=== PATIENT | female | born 2000 | race Hispanic/Latino ===

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

== ENCOUNTER 2022-03-07 08:10 | Emergency (ER) | payer OTHER ==
[~2022-03-07] VITALS: Ht 149.9 cm; Wt 47.6 kg
[2022-03-07] MEDS ORDERED: LIDOCAINE HCL 1% LOCAL INJ 20 ML VIAL INJ ONE (08:30)
[2022-03-07] MEDS ORDERED: BACITRACIN ZINC 0.9GM TP ONE ×2 (09:43→09:45)
[2022-03-07] MEDS ORDERED: KEFLEX125 MG/5 M PO (11:42)
== END 2022-03-07 13:04 | disposition home or self-care (01) ==
LOC: ER 08:30
DX: S61.411A Laceration without foreign body of right hand, initial encounter (principal); W26.8XXA Contact with other sharp object(s), not elsewhere classified, initial encounter; Y92.89 Other specified places as the place of occurrence of the external cause; G40.909 Epilepsy, unspecified, not intractable, without status epilepticus
CPT/HCPCS: 12002; 73110; 73130; 99284; J2001

== ENCOUNTER 2022-03-21 13:51 | Emergency (ER) | payer OTHER ==
[~2022-03-21] VITALS: Ht 149.9 cm; Wt 47.6 kg
[~2022-03-21 13:51] MED LIST: KEFLEX125 MG/5 M PO
== END 2022-03-21 14:10 | disposition home or self-care (01) ==
LOC: ER 14:06
DX: Z48.02 Encounter for removal of sutures (principal)
CPT/HCPCS: 99283

== ENCOUNTER 2022-07-13 13:12 | Emergency (ER) | payer OTHER ==
[~2022-07-13] VITALS: Ht 149.9 cm; Wt 47.6 kg
[2022-07-13] MEDS ORDERED: SODIUM CHLORIDE 0.9% 1000ML 1,000 ML IV STA (13:26)
[2022-07-13] MEDS ORDERED: ONDANSETRON HCL INJ 2MG/ML 2ML 2 MG/ML VIAL IV PRN (13:30)
[2022-07-13 13:42] LABS: BASOPHILS % 0.4 % (0.0-1.0); EOSINOPHILS # (AUTO) 0.1 (0.0-0.4); EOSINOPHILS % 0.8 % (0.0-6.0); HEMATOCRIT 36.3 % (34.2-44.1); HEMOGLOBIN 11.6 g/dL (12.0-16.0); LYMPHOCYTES % 27.6 % (18.0-39.1); MEAN CORPUSCULAR HEMOGLOBIN 29.5 pg (28-32); MEAN CORPUSCULAR VOLUME 92.4 fL (81-99); MONOCYTES # (AUTO) 0.4 (0.2-0.8); NEUTROPHILS # (AUTO) 4.6 (2.1-6.9); NEUTROPHILS % 64.9 % (38.7-80.0); PLATELET COUNT 288 x10e3/uL (140-360); RED BLOOD COUNT 3.93 x10e6/uL (3.6-5.1); RED CELL DISTRIBUTION WIDTH 13.8 % (11.7-14.4)
[2022-07-13 14:08] LABS: ALBUMIN 4.3 g/dL (3.5-5.0); ALBUMIN/GLOBULIN RATIO 1.2 (0.8-2.0); ANION GAP 12.3 mmol/L (8-16); CALCIUM 9.3 mg/dL (8.4-10.2); CREATININE, SERUM 0.72 mg/dL (0.57-1.11); POTASSIUM 3.3 mmol/L (3.5-5.1)
[2022-07-13 14:31] LABS: CLARITY,URINE TURBID (CLEAR); COLOR,URINE YELLOW (YELLOW); KETONES,URINE NEGATIVE (NEGATIVE); LEUKOCYTE ESTERASE ,URINE MODERATE (NEGATIVE); NITRITE,URINE NEGATIVE (NEGATIVE); PROTEIN,URINE DIPSTICK NEGATIVE (NEGATIVE); URINE UROBILINOGEN 1 mg/dL (0.2 - 1)
[2022-07-13 14:46] LABS: WBC,URINE (MAN) >50 /HPF (0-5)
[2022-07-13] MEDS ORDERED: KETOROLAC TROMETHAMINE 30 MG/ML VIAL IV STA (14:46)
[2022-07-13 14:47] LABS: BACTERIA,URINE MODERATE /HPF
[2022-07-13] MEDS ORDERED: CEFDINIR300 MG PO ×2 (14:52→14:54)
[2022-07-13] MEDS ORDERED: DOXYCYCLINE HY100 MG PO (14:52)
[2022-07-13] MEDS ORDERED: ONDANSETRON ODT4 MG PO (14:53)
[2022-07-13] MEDS ORDERED: PROMETHAZINE 12.5MG/ NACL 0.9% 12.5 MG/50 ML BAG IV ONE (15:00)
[2022-07-13] MEDS ORDERED: CEFTRIAXONE 1 GM VIAL ONE (15:03)
== END 2022-07-13 15:30 | disposition home or self-care (01) ==
LOC: ER 13:15
DX: R30.0 Dysuria (principal); N12 Tubulo-interstitial nephritis, not specified as acute or chronic; M54.50 Low back pain, unspecified; R10.30 Lower abdominal pain, unspecified; G40.909 Epilepsy, unspecified, not intractable, without status epilepticus
CPT/HCPCS: 36415; 80053; 81001; 83690; 84702; 85025; 87086; 87186; 99284; J0696; J1885; J2405; J2550; J7030